=== PATIENT | female | born 1950 | race Caucasian/White ===

== ENCOUNTER 2017-07-25 10:25 | Inpatient (IN) | payer OTHER ==
[~2017-07-25] VITALS: Ht 149.9 cm; Wt 47.6 kg
[2017-07-25 10:28] VITALS: BP 180/80
[2017-07-25] MEDS ORDERED: [UNRECOGNIZED DRUG - CODE] PO (10:41)
[2017-07-25] MEDS ORDERED: ORE25 PO (10:41)
[2017-07-25] MEDS ORDERED: ATEN1TAB PO (10:41)
[2017-07-25] MEDS ORDERED: AMLO5TAB PO (10:41)
[2017-07-25] MEDS ORDERED: VAS10 PO (10:41)
[2017-07-25] MEDS ORDERED: LINA1TAB PO (10:41)
[2017-07-25] MEDS ORDERED: GLIP5TAB4 PO (10:41)
[2017-07-25] MEDS ORDERED: METF850T PO (10:41)
[2017-07-25] MEDS ORDERED: AMLO2.5T PO (10:41)
[2017-07-25] MEDS ORDERED: PANT40EC PO (10:41)
--- NOTE | 2017-07-25 10:50 | NUR ---
PATIENT JAIR BRADY PRESENTS TO ED WITH BURNING CHEST PAIN SINCE YESTERDAY HX CARDIOMEGALY, HTN, DM, HIGH CHOLESTEROL, ANXIETY. DENIES N/V/D; SKIN IS PINK/WARM/DRY; AAOX4 WITH EVEN AND STEADY GAIT; LUNGS CLEAR BL; HR EVEN AND REGULAR; PT DENIES ANY FEVER, SOB, OR COUGH AT THIS TIME; PATIENT STATES PAIN OF 4/10 AT THIS TIME; VSS; PATIENT POSITIONED FOR COMFORT; HOB ELEVATED; BEDRAILS UP X2; BED DOWN. ER MD MADE AWARE OF PT STATUS.
[2017-07-25] MEDS ORDERED: NACL 0.9% 1,000 ML IV ONE (11:00)
[2017-07-25] MEDS ORDERED: NITROGLYCERIN 2% 1 GM PKT TP ONE (11:00)
[2017-07-25] MEDS ORDERED: ASPIRIN 81 MG TAB.CHEW PO ONE (11:00)
[2017-07-25] MEDS ORDERED: PANTOPRAZOLE 40 MG INJ VIAL IVP ONE (11:00)
[2017-07-25 11:45] LABS: BASOPHILS # (AUTO) 0.1 K/uL (0.00-0.22); BASOPHILS % (AUTO) 1.8 % (0.0-2.0); EOSINOPHILS % (AUTO) 0.6 % (0.0-4.0); HEMATOCRIT 37.5 % (36-48); HEMOGLOBIN 12.8 g/dL (12.0-16.0); LYMPHOCYTES # (AUTO) 0.8 K/uL (2.5-16.5); LYMPHOCYTES % (AUTO) 10.6 % (20.5-51.1); MEAN CORPUSCULAR HEMOGLOBIN 33 pg (27-31); MEAN CORPUSCULAR HGB CONC 34 g/dL (33-37); MEAN CORPUSCULAR VOLUME 97 fL (80-94); MONOCYTES # (AUTO) 0.7 K/uL (0.8-1.0); NEUTROPHILS # (AUTO) 6.2 K/uL (1.8-7.7); PLATELET COUNT (AUTO) 242 K/uL (140-450); RED BLOOD CELL COUNT(AUTO) 3.87 MIL/uL (4.20-5.40); RED CELL DISTRIBUTION WIDTH 12.4 % (11.6-13.7); WHITE BLOOD COUNT (AUTO) 7.8 K/uL (4.8-10.8)
--- NOTE | 2017-07-25 11:52 | NUR ---
AAO PT AMBULATES TO THE RESTROOM WITH DAUGHTER'S ASSISTANCE
[2017-07-25 11:55] LABS: PROTHROMBIN TIME 9.8 secs (10.8-13.4)
[2017-07-25 11:57] LABS: ALBUMIN 3.8 g/dL (3.4-5.0); CARBON DIOXIDE 27.5 mmol/L (21-32); CREATININE 1.1 mg/dL (0.6-1.3); POTASSIUM 4.5 mmol/L (3.5-5.1); TOTAL BILIRUBIN 0.3 mg/dL (0.0-1.0)
[2017-07-25] MEDS ORDERED: DOCUSATE SODIUM 100 MG GELCAP PO PRN (13:05)
[2017-07-25] MEDS ORDERED: HYDROcodone/APAP 7.5/325 MG 1 TAB PO PRN (13:05)
[2017-07-25] MEDS ORDERED: ONDANSETRON 4 MG/2 ML VIAL IM/IVP PRN (13:05)
[2017-07-25] MEDS ORDERED: ACETAMINOPHEN 325 MG TAB PO PRN (13:05)
[2017-07-25] MEDS ORDERED: SIMETHICONE 80 MG TAB.CHEW PO PRN (13:55)
[2017-07-25 14:10] VITALS: BP 154/68
[2017-07-25] MEDS: ASPIRIN 81 MG TAB.CHEW PO SCH (14:10)
--- NOTE | 2017-07-25 14:10 | NUR ---
PATIENT ARRIVED ON [facility] UNIT VIA BED/GURNEY. IN STABLE CONDITION. ABLE TO AMBULATE FROM BED/GURNEY TO [facility] BED. NO DISTRESS NOTED. DENIES ANY PAIN AT THIS TIME. DAUGHTER WITH PATIENT AT BEDSIDE. AAOX4, CALM, COOPERATIVE, SKIN COLOR APPROPRIATE TO ETHNICITY, WARM TO TOUCH. SKIN IS INTACT, NO WOUNDS/LESIONS NOTED THROUGHOUT BODY. IV SITE ON RIGHT AC #22G, INTACT, PATENT. LUNGS CTA ON ALL LOBES. ABDOMEN SOFT, NON-TENDER. ORIENTED PATIENT TO ROOM AND CALL LIGHT FUNCTION. REVIEWED PLAN OF CARE WITH PATIENT/DAUGHTER. PATIENT/DAUGHTER VERBALIZED UNDERSTANDING. SAFETY MEASURES IN PLACE, CALL LIGHT WITHIN REACH. WILL CONTINUE TO MONITOR.
[2017-07-25 14:15] LABS: CHOL/HDL RATIO 2.5 (1-4.5); FREE T4 (FREE THYROXINE) 1.31 ng/dL (0.76-1.46); MAGNESIUM 1.8 mg/dL (1.8-2.4); THYROID STIMULATING HORMONE 1.69 uIU/mL (0.34-3.74)
--- NOTE | 2017-07-25 14:15 | NUR ---
Patient will be admitted to care of Dr Wells. Admited to tele. Will go to room 105b. Belongings list completed. Report to LEWIS Carlin.
--- NOTE | 2017-07-25 14:25 | NUR ---
Daxa fritz in EDM - 07/25/17 at 1441 by SOLO Patient will be admitted to care of Dr Mai. Admited to tele. Will go to room 112b. Belongings list completed. Report to LEWIS Stone.
[2017-07-25] MEDS ORDERED: DEXTROSE 50% 50 ML SYR IVP PRN (14:50)
[2017-07-25] MEDS ORDERED: INSULIN LISPRO SLIDING SCALE 100 UNITS/ML VIAL SUBQ PRN (14:50)
[2017-07-25] MEDS ORDERED: NACL 3% 500 ML IV ONE (15:00)
--- NOTE | 2017-07-25 15:10 | NUR ---
RADIOLOGY AT BEDSIDE FOR ARTERIAL AND VENUOUS DOPPLER ULTRASOUND. WILL CONTINUE TO MONITOR.
--- NOTE | 2017-07-25 15:53 | NUR ---
NACL 3% 500 ML AT 20 ML/HR IV STARTED PER ORDERS, HOWEVER, DR. GRACE CAME TO PATIENT'S BEDSIDE AND GAVE VERBAL ORDERS TO HOLD THE NACL 3% UNTIL LAB RESULTS COME BACK, AND TO CONTINUE PATIENT ON NACL 0.9% IVF @75 ML/HR. MD ORDERS CARRIED OUT. MRSA CULTURE OBTAINED, URINE CULTURE OBTAINED AND SENT TO LAB. SAFETY MEASURES IN PLACE, CALL LIGHT WITHIN REACH. WILL CONTINUE TO MONITOR.
[2017-07-25 16:00] VITALS: BP 148/75
[2017-07-25] MEDS: NACL 0.9% 1,000 ML IV SCH (16:43)
[2017-07-25] MEDS: metFORMIN 500 MG TAB PO SCH (17:00)
--- NOTE | 2017-07-25 17:00 | NUR ---
PATIENT'S BLOOD GLUCOSE WAS 71, ASYMPTOMATIC. PATIENT REPORTS NOT HAVING EATEN ANYTHING SINCE THIS MORNING. GAVE PATIENT APPLE JUICE AND PUDDING. WITHHELD METFORMIN PO MEDICATION AT THIS TIME DUE TO DECREASED BLOOD GLUCOSE. SAFETY MEASURES IN PLACE. WILL CONTINUE TO MONITOR.
[2017-07-25] MEDS: BLOOD GLUCOSE MONITORING 1 DEV DEV FS SCH ×2 (17:18→20:48)
--- NOTE | 2017-07-25 18:00 | NUR ---
PATIENT SITTING IN BED WITH DINNER TRAY IN FRONT. FAMILY MEMBERS AT BESIDE. NO DISTRESS NOTED. DENIES ANY PAIN. RESPIRATIONS EVEN, UNLABORED, ON ROOM AIR. IV SITE IS INTACT, PATENT, AND INFUSING NS .09% AT 75 ML/HR PER DR. GRACE ORDERS. WILL CONTINUE TO MONITOR.
[2017-07-25 18:30] LABS: APPEARANCE,URINE CLEAR (CLEAR); BILIRUBIN,URINE NEGATIVE (NEGATIVE); BLOOD, URINE TRACE-L (NEGATIVE); LEUKOCYTE ESTERASE ,URINE NEGATIVE (NEGATIVE); NITRITE, URINE NEGATIVE (NEGATIVE); UGLUCOSE NEGATIVE (NEGATIVE)
[2017-07-25 18:33] LABS: COLOR,URINE STRAW (YELLOW)
--- NOTE | 2017-07-25 19:15 | NUR ---
GAVE REPORT TO AUTOMATIC BANDSAW TENDER NURSE FOR CONTINUITY OF CARE. PATIENT IN STABLE CONDITION.
--- NOTE | 2017-07-25 19:16 | NUR ---
RECEIVED REPORT FROM DAY NURSE CAROLYN RN, PT IN STABLE CONDITION. NO S/S OF DISTRESS NOTED PT IN STABLE CONDITION. PT IS AAOX4, ON ROOM AIR. IV TO R AC 22G PATENT AND INTACT. INFUSING WELL. SKIN IS INTACT. RESPIRATIONS ARE EVEN AND UNLABORED. SKIN IS WARM AND DRY TO TOUCH. DISCUSSED PLAN OF CARE WITH PT AND DAUGHTER WITH DAY NURSE AND MYSELF, VERBALIZED UNDERSTANDING. ALL SAFETY PRECAUTIONS MET, CALL LIGHT WITHIN REACH, WILL CONTINUE TO MONITOR
[2017-07-25 19:20] LABS: RBC,URINE 0-5 (RARE) /HPF (0-5)
[2017-07-25 19:21] LABS: WBC,URINE NONE SEEN /HPF (0-5)
[2017-07-25 20:00] VITALS: BP 129/68
[2017-07-25] MEDS: ENALAPRIL 10 MG TAB PO SCH (20:44)
[2017-07-25] MEDS: amLODIPine 5 MG TAB PO SCH (20:45)
--- NOTE | 2017-07-25 20:45 | NUR ---
DUE MEDICATIONS GIVEN, NATURAL REMEDY CONSULTANT [id number] EMBER USED TO EXPLAIN MEDICATIONS, SIDE EFFECTS, AND BENEFITS. PT VERBALIZED UNDERSTAND AND TOLERATED WELL.
[2017-07-25 21:15] LABS: ANION GAP 11.8 (8-16); CARBON DIOXIDE 29.1 mmol/L (21-32); CREATININE 0.7 mg/dL (0.6-1.3); POTASSIUM 3.9 mmol/L (3.5-5.1)
[2017-07-26] VITALS: BP 120/64
[2017-07-26 04:00] VITALS: BP 123/65
[2017-07-26] MEDS: NACL 0.9% 1,000 ML IV SCH ×2 (05:42→20:13)
[2017-07-26 06:15] LABS: T4 (THYROXINE) 9.1 ug/dL (4.5-12.0)
[2017-07-26] MEDS: BLOOD GLUCOSE MONITORING 1 DEV DEV FS SCH ×4 (06:34→20:12)
[2017-07-26 07:14] LABS: BASOPHILS # (AUTO) 0.3 K/uL (0.00-0.22); BASOPHILS % (AUTO) 3.9 % (0.0-2.0); EOSINOPHILS # (AUTO) 0.1 K/uL (0-0.4); EOSINOPHILS % (AUTO) 1.5 % (0.0-4.0); HEMATOCRIT 34.5 % (36-48); HEMOGLOBIN 12.1 g/dL (12.0-16.0); LYMPHOCYTES # (AUTO) 1.3 K/uL (2.5-16.5); LYMPHOCYTES % (AUTO) 18.9 % (20.5-51.1); MEAN CORPUSCULAR HEMOGLOBIN 33 pg (27-31); MEAN CORPUSCULAR HGB CONC 35 g/dL (33-37); MEAN CORPUSCULAR VOLUME 95 fL (80-94); MONOCYTES # (AUTO) 0.6 K/uL (0.8-1.0); MONOCYTES % (AUTO) 8.3 % (1.7-9.3); NEUTROPHILS # (AUTO) 4.7 K/uL (1.8-7.7); NEUTROPHILS % (AUTO) 67.4 % (42.2-75.2); PLATELET COUNT (AUTO) 209 K/uL (140-450); RED BLOOD CELL COUNT(AUTO) 3.63 MIL/uL (4.20-5.40); RED CELL DISTRIBUTION WIDTH 12.5 % (11.6-13.7)
--- NOTE | 2017-07-26 07:19 | NUR ---
REPORT GIVEN TO SAMIR SAUCEDO FOR CONTINUITY OF CARE, PT IN STABLE CONDITION. NO S/S OF DISTRESS NOTED.
--- NOTE | 2017-07-26 07:20 | NUR ---
RECEIVED REPORT FROM PATCHER NURSE NESHA AT BEDSIDE FOR CONTINUITY OF CARE. PT IS AWAKE AND ORIENTED. DAUGHTER HENRY IS AT BEDSIDE. PT GOT UP TO USE BATHROOM. WALKED WITH STEADY GAIT. ASSISTED BACK TO BED. CALL LIGHT WITHIN REACH. BED IN LOW POSITION, WHEELS LOCKED. WILL CONTINUE TO MONITOR.
[2017-07-26 07:21] LABS: ANION GAP 12.5 (8-16); CARBON DIOXIDE 27.2 mmol/L (21-32); CREATININE 0.6 mg/dL (0.6-1.3); POTASSIUM 3.7 mmol/L (3.5-5.1)
[2017-07-26 08:00] VITALS: BP 142/65
[2017-07-26] MEDS: metFORMIN 500 MG TAB PO SCH ×2 (08:47→18:12)
[2017-07-26] MEDS: PANTOPRAZOLE 40 MG TABEC PO SCH (08:47)
--- NOTE | 2017-07-26 08:47 | NUR ---
CALLED REHABILITATION AIDE/SCHEDULER ENRIQUE [phone] WHO TRANSLATED FROM [place] AND SPOKE WITH PT'S DAUGHTER HENRY. TRANSLATED FOR SCHEDULED MEDS PURPOSE AND SIDE EFFECTS. PT AGREED HENRY WOULD TRANSLATE FOR HER. VERBALIZED UNDERSTANDING OF MEDS AND TOLERATED WELL. ASKED IF PT HAD ANY DISCOMFORT, NAUSEA OR PAIN. PT STATED NO. PT DENIES ANY PAIN AND STATED SHE FEELS FINE. NO SIGNS OF DISTRESS. WILL CONTINUE TO MONITOR.
[2017-07-26] MEDS: ATENOLOL 50 MG TAB PO SCH (08:48)
[2017-07-26] MEDS: amLODIPine 5 MG TAB PO SCH ×2 (08:48→20:13)
[2017-07-26] MEDS: ENALAPRIL 10 MG TAB PO SCH ×2 (08:48→20:12)
[2017-07-26] MEDS: ASPIRIN 81 MG TAB.CHEW PO SCH (08:48)
[2017-07-26] MEDS: ATORVASTATIN 20 MG TAB PO SCH (08:55)
[2017-07-26] MEDS ORDERED: glipiZIDE 5 MG TAB PO SCH (09:00)
--- NOTE | 2017-07-26 09:10 | NUR ---
PATIENT HAS BEEN SCREENED AND CATEGORIZED LOW NUTRITION RISK. PATIENT WILL BE SEEN WITHIN 7 DAYS OF ADMISSION. 08/01/[address] Addendum: 07/26/17 at [address] PATIENT HAS BEEN RESCREENED AND RECATEGORIZED MODERATE NUTRITION RISK. PATIENT WILL BE SEEN WITHIN 3-5 DAYS OF ADMISSION. 07/27/17/07/29/[address] Addendum: 07/27/17 at [address] DATE CORRECTION: 07/28/17 - 07/30/[address]
[2017-07-26 12:00] VITALS: BP 144/72
--- NOTE | 2017-07-26 12:00 | NUR ---
CONSENT FOR EGD AND COLONOSCOPY OBTAINED. PT'S SIGNED FORMS FOR PT. DR. ROCHA WENT OVER PROCEDURE WITH FAMILY AT BEDSIDE WHO TRANSLATED FOR PT. PT VERBALIZED UNDERSTANDING OF PROCEDURE.
[2017-07-26] MEDS: SENNA 8.6 MG TAB PO SCH ×2 (13:07→18:11)
[2017-07-26] MEDS: LACTULOSE 20 GM/30 ML UDC PO SCH ×3 (13:07→20:12)
[2017-07-26] MEDS ORDERED: BOWEL EVACUANT DRINK 4,000 ML PDS PO SCH (15:00)
--- NOTE | 2017-07-26 15:37 | NUR ---
CALLED MACHINE ERECTOR MARLON #[phone] WHO SPOKE TO PT IN [place]. TRANSLATED FOR PURPOSE OF GOLYTELY AND SIDE EFFECTS. PT VERBALIZED UNDERSTANDING. PT TOLERATING MED WELL. FAMILY MEMBERS AT BEDSIDE. PT'S GRANDDAUGHTER ASSISTING PT WITH INTAKE OF GOLYTELY. WILL CONTINUE TO MONITOR.
[2017-07-26 16:00] VITALS: BP 154/73
--- NOTE | 2017-07-26 17:01 | NUR ---
PT FINISHED GOLYTELY BOWEL PREP. TOLERATED WELL. BSC NEXT TO BED. FAMILY MEMBERS AT BEDSIDE. INSTRUCTED PT AND FAMILY OF USE OF CALL LIGHT WHEN PT NEEDS TO GET OUT OF BED. PT VERBALIZED UNDERSTANDING. NO SIGNS OF DISTRESS. WILL CONTINUE TO MONITOR.
--- NOTE | 2017-07-26 19:20 | NUR ---
ENDORSED PT TO RADAR SYSTEMS ENGINEER NURSE NIK AT BEDSIDE FOR CONTINUITY OF CARE. PT'S FAMILY AT BEDSIDE. PT IN STABLE CONDITION.
--- NOTE | 2017-07-26 19:30 | NUR ---
RECEIVED FROM AM RN IN BED SITTING UP WITH DAUGHTER AT BEDSIDE. DX. HYPONATREMIA AND WITH GERD. ALBANIAN SPEAKING. DAUGHTER SPEAKS YI. TELEMETRY MONITORING. NO SOB. WITH BOWEL PREP AT THIS TIME RT FOR EGD AND COLONOSCOPY IN A.M. BY MD ROCHA. IVF SITE TO RAC #22 INTACT AND NO INFILTRATION . CALL LIGHT WITH IN REACH. PT. INDEPENDENT . ROM X 4. CLEAR SPEECH. RE-ORIENTED TO ROOM , ROCKET TEST FIRE WORKER AND CALL LIGHT USE. SKIN INTACT. NO EDEMA.
[2017-07-26 20:00] VITALS: BP 130/68
--- NOTE | 2017-07-26 22:21 | NUR ---
PT. STILL AWAKE AND GOES TO BEDSIDE COMMODE TO EMPTY BOWELS RT BOWEL PREP FOR EGD TOMORROW. PT. A/O X 4. ROM X 4. CLEAR SPEECH. TELEMETRY MONITORING. NO SOB. CALL LIGHT WITH IN REACH. DENIES PAIN AT THIS TIME. ENCOURAGED TO CALL FOR ANY HELP SHE MAY NEED OR IF IN PAIN. REMINDED OF NPO MIDNIGHT. EXPLAINED TO FAMILY MEMBERS AND PT. HOW IMPORTANT TO FOLLOW NPO MIDNIGHT. "OK"
--- NOTE | 2017-07-27 | NUR ---
PT. SLEEPING BUT WAKES UP EVERY NOW AND THEN TO GO BM AT BEDSIDE COMMODE.
[2017-07-27 00:10] VITALS: BP 122/64
--- NOTE | 2017-07-27 04:16 | NUR ---
PT. SLEEPING WELL THIS SHIFT. DAUGHTER AT BEDSIDE WATCHING OVER HER. CALL LIGHT WITH IN REACH. NPO SINCE MIDNIGHT.
[2017-07-27 04:49] VITALS: BP 150/77
[2017-07-27] MEDS: BLOOD GLUCOSE MONITORING 1 DEV DEV FS SCH ×3 (05:58→16:29)
[2017-07-27 06:29] LABS: BASOPHILS # (AUTO) 0.3 K/uL (0.00-0.22); BASOPHILS % (AUTO) 4.4 % (0.0-2.0); EOSINOPHILS # (AUTO) 0.1 K/uL (0-0.4); EOSINOPHILS % (AUTO) 0.8 % (0.0-4.0); HEMATOCRIT 35.1 % (36-48); HEMOGLOBIN 11.9 g/dL (12.0-16.0); LYMPHOCYTES # (AUTO) 1.5 K/uL (2.5-16.5); LYMPHOCYTES % (AUTO) 20.1 % (20.5-51.1); MEAN CORPUSCULAR HEMOGLOBIN 33 pg (27-31); MEAN CORPUSCULAR HGB CONC 34 g/dL (33-37); MEAN CORPUSCULAR VOLUME 97 fL (80-94); MONOCYTES # (AUTO) 0.7 K/uL (0.8-1.0); NEUTROPHILS # (AUTO) 4.8 K/uL (1.8-7.7); NEUTROPHILS % (AUTO) 64.7 % (42.2-75.2); PLATELET COUNT (AUTO) 208 K/uL (140-450); RED BLOOD CELL COUNT(AUTO) 3.61 MIL/uL (4.20-5.40); RED CELL DISTRIBUTION WIDTH 12.4 % (11.6-13.7); WHITE BLOOD COUNT (AUTO) 7.4 K/uL (4.8-10.8)
--- NOTE | 2017-07-27 06:47 | NUR ---
PT. AWAKE AT THIS TIME AND STATED THAT HER BM IS NOW LIQUIDY AND JUST LITTLE SPECS OF SOLIDS SEEN. DAUGHTER AT BEDSIDE. PT. BEEN NPO SINCE MIDNIGHT. NO PAIN COMPLAINTS THIS SHIFT.
[2017-07-27 06:50] LABS: ANION GAP 15.3 (8-16); CARBON DIOXIDE 21.8 mmol/L (21-32); CREATININE 0.6 mg/dL (0.6-1.3); POTASSIUM 3.1 mmol/L (3.5-5.1)
--- NOTE | 2017-07-27 07:20 | NUR ---
RECEIVED REPORT FROM SQL DEVELOPER DBA NURSE NIK AT BEDSIDE FOR CONTINUITY OF CARE. PT'S DAUGHTER AT BEDSIDE. PT IS AWAKE AND ORIENTED. INTRODUCED SELF AND UPDATED BOARD. IV INFUSING AT 65ML/HR. NO SIGNS OF DISTRESS. WILL CONTINUE TO MONITOR.
[2017-07-27 08:00] VITALS: BP 142/70
[2017-07-27] MEDS: metFORMIN 500 MG TAB PO SCH (08:00)
[2017-07-27 08:46] LABS: OSMOLALITY,URINE 264 mOsmol/kg (.)
[2017-07-27] MEDS: amLODIPine 5 MG TAB PO SCH (09:00)
[2017-07-27] MEDS: SENNA 8.6 MG TAB PO SCH ×2 (09:00→12:50)
[2017-07-27] MEDS: ATORVASTATIN 20 MG TAB PO SCH (09:00)
[2017-07-27] MEDS ORDERED: ENALAPRIL 10 MG TAB PO SCH (09:00)
[2017-07-27] MEDS: ATENOLOL 50 MG TAB PO SCH (09:00)
[2017-07-27] MEDS: LACTULOSE 20 GM/30 ML UDC PO SCH ×2 (09:00→12:50)
[2017-07-27] MEDS: PANTOPRAZOLE 40 MG TABEC PO SCH (09:00)
--- NOTE | 2017-07-27 09:50 | NUR ---
CHECKED ON PT IN ROOM. SITTING UP IN BED. PT'S DAUGHTER IS AT BEDSIDE. NON-ADMINISTERED PO MEDS DUE TO PT NPO STATUS. NO SIGNS OF DISTRESS. ASKED IF PT NEEDED ANYTHING STATED NO. BED IN LOW POSITION, WHEELS LOCKED, CALL LIGHT WITHIN REACH. WILL CONTINUE TO MONITOR.
--- NOTE | 2017-07-27 11:43 | NUR ---
CHECKED BS 167. NO INSULIN COVERAGE DUE TO NPO STATUS. PT'S DAUGHTER AT BEDSIDE. NO COMPLAINTS AT THIS TIME WILL CONTINUE TO MONITOR.
[2017-07-27 12:00] VITALS: BP 158/62
--- NOTE | 2017-07-27 13:10 | NUR ---
PT PICKED UP FOR OR BY BED ACCOMPANIED BY RN. LEFT IN STABLE CONDITION.
[2017-07-27] MEDS ORDERED: diphenhydrAMINE 50 MG/ML VIAL ONE ×2 (13:33→14:54)
[2017-07-27] MEDS ORDERED: fentaNYL 0.05 MG/ML VIAL ONE ×2 (13:33→14:53)
[2017-07-27] MEDS ORDERED: MIDAZOLAM 2 MG/2 ML VIAL ONE ×2 (13:33→14:53)
--- NOTE | 2017-07-27 15:30 | NUR ---
PT RETURNED FROM OR. REPORT GIVEN BY OR NURSE. VS: BP 151/69, HR 81, RR 20, O2 SAT 100% ON RA, TEMP 98.1. NO SIGNS OF DISTRESS. FAMILY MEMBERS AT BEDSIDE. PT IN STABLE CONDITION.
[2017-07-27 16:00] VITALS: BP 151/61
[2017-07-27] MEDS: NACL 0.9% 1,000 ML IV SCH (16:01)
[2017-07-27] MEDS ORDERED: MIDAZOLAM 2 MG/2 ML VIAL IVP ONE (16:45)
[2017-07-27] MEDS ORDERED: fentaNYL 0.05 MG/ML VIAL IVP ONE (16:45)
[2017-07-27] MEDS ORDERED: VAS10 PO (16:55)
[2017-07-27] MEDS ORDERED: MAGN400S60 PO (16:55)
[2017-07-27] MEDS ORDERED: SODIUM CHLORIDE 1 GM TAB PO SCH (17:40)
[2017-07-27] MEDS ORDERED: POTASSIUM CHLORIDE 10 MEQ TABER PO SCH (17:43)
--- NOTE | 2017-07-27 18:09 | NUR ---
PT D/C'D TO GO HOME. D/C FORMS, INSTRUCTIONS, FOLLOW UP APPOINTMENT, LABS, AND RX REVIEWED WITH PT AND DAUGHTER HENRY. VERBALIZED UNDERSTANDING. D/C IV FROM RIGHT AC AND FA. IV CATHETER TIP INTACT. APPLIED DRESSING AND PRESSURE TO SITE. NO BLEEDING NOTED. REMOVED ID BAND AND TELE MONITOR. PT CHANGED IN OWN CLOTHES AND LEFT WITH ALL PERSONAL BELONGINGS. PT LEFT UNIT VIA WHEELCHAIR ACCOMPANIED BY FAMILY. PT LEFT IN STABLE CONDITION.
== END 2017-07-27 18:30 | disposition home or self-care (01) | DRG 391 ==
LOC: MED 10:25 → MTU 13:02
PROVIDERS: ADMIT Family Medicine; ATTEND Family Medicine
PROC: 0DJD8ZZ Inspection of Lower Intestinal Tract, Via Natural or Artificial Opening Endoscopic (ICD-10-PCS; principal; 2017-07-27 16:00)
PROC: 0DB68ZX Excision of Stomach, Via Natural or Artificial Opening Endoscopic, Diagnostic (ICD-10-PCS; 2017-07-27 16:00)
DX: K21.9 Gastro-esophageal reflux disease without esophagitis (principal); N17.0 Acute kidney failure with tubular necrosis; D68.59 Other primary thrombophilia; E87.1 Hypo-osmolality and hyponatremia; E11.51 Type 2 diabetes mellitus with diabetic peripheral angiopathy without gangrene; I11.9 Hypertensive heart disease without heart failure; E78.5 Hyperlipidemia, unspecified; E78.00 Pure hypercholesterolemia, unspecified; F41.9 Anxiety disorder, unspecified; E87.6 Hypokalemia; D63.8 Anemia in other chronic diseases classified elsewhere; E87.8 Other disorders of electrolyte and fluid balance, not elsewhere classified; R63.4 Abnormal weight loss; Z68.21 Body mass index [BMI] 21.0-21.9, adult
CPT/HCPCS: 36415; 71010; 80048; 80053; 81001; 82948; 83036; 83735; 83930; 83935; 84100; 84300; 84436; 84439; 84443; 84479; 84484; 85025; 85610; 85730; 86677; 87081; 93925; 93970; 96361; 96374; 99285; C9113; J1200; J1815; J2250; J3010; J3490; J7030; Q0092

== ENCOUNTER 2018-06-28 08:19 | Inpatient (IN) | payer OTHER ==
[~2018-06-28] VITALS: Ht 149.9 cm; Wt 49.9 kg
[~2018-06-28 08:19] MED LIST: AMLO2.5T PO; AMLO5TAB PO; ATEN1TAB PO; LINA1TAB PO; MAGN400S60 PO; METF850T PO; PANT40EC PO; VAS10 PO; [UNRECOGNIZED DRUG - CODE] PO
--- NOTE | 2018-06-28 08:30 | NUR ---
PT AMBULATED TO ER BED 11
[2018-06-28 08:35] VITALS: BP 184/63
--- NOTE | 2018-06-28 08:35 | NUR ---
68f bib daughter with c/o 10/10 bl below the knee leg pain, upper back pain, bl hand numbness, dizziness, generalyzed weakness to bl lower leg. 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 Patient is aox4 to person, place, time, and situation. Equal bl arm public works director. Equal bl leg push/pull. RR are even and unlabored. Patient with steady gait. CMS intact to bl arm and legs. Patient changed into gown. Awaiting er md wan. All needs met at this time. Will continue to monitor.
[2018-06-28] MEDS ORDERED: GLIP5TAB4 PO (08:52)
[2018-06-28] MEDS ORDERED: OMEP40EC14 PO (08:55)
[2018-06-28] MEDS ORDERED: CARV25TA PO (08:57)
[2018-06-28] MEDS ORDERED: ASPI81CT89 PO (08:58)
[2018-06-28] MEDS ORDERED: LISI30TA6 PO (08:59)
[2018-06-28] MEDS ORDERED: AMLO5TAB PO (09:01)
[2018-06-28] MEDS ORDERED: NACL 0.9% 1,000 ML IV ONE ×3 (09:10→10:45)
[2018-06-28 09:41] LABS: BASOPHILS # (AUTO) 0.1 K/uL (0.00-0.22); BASOPHILS % (AUTO) 0.8 % (0.0-2.0); EOSINOPHILS # (AUTO) 0.2 K/uL (0-0.4); EOSINOPHILS % (AUTO) 3.1 % (0.0-4.0); HEMOGLOBIN 10.5 g/dL (12.0-16.0); LYMPHOCYTES % (AUTO) 14.9 % (20.5-51.1); MEAN CORPUSCULAR HEMOGLOBIN 33 pg (27-31); MEAN CORPUSCULAR HGB CONC 35 g/dL (33-37); MEAN CORPUSCULAR VOLUME 95.4 fL (80-94); MONOCYTES # (AUTO) 0.5 K/uL (0.8-1.0); NEUTROPHILS # (AUTO) 4.9 K/uL (1.8-7.7); NEUTROPHILS % (AUTO) 73.2 % (42.2-75.2); PLATELET COUNT (AUTO) 224 K/uL (140-450); RED BLOOD CELL COUNT(AUTO) 3.15 MIL/uL (4.20-5.40); RED CELL DISTRIBUTION WIDTH 12.6 % (11.6-13.7); WHITE BLOOD COUNT (AUTO) 6.7 K/uL (4.8-10.8)
[2018-06-28 09:53] LABS: ANION GAP 13.6 (8-16); CARBON DIOXIDE 25.3 mmol/L (21-32); CREATININE 0.8 mg/dL (0.6-1.3); POTASSIUM 4.9 mmol/L (3.5-5.1); TOTAL BILIRUBIN 0.6 mg/dL (0.0-1.0)
--- NOTE | 2018-06-28 10:19 | NUR ---
patient with no complaints; ivf running without difficultly; all needs met at this time; awaiting lab results
[2018-06-28] MEDS ORDERED: ONDANSETRON 4 MG/2 ML VIAL IM/IVP PRN (10:40)
[2018-06-28] MEDS ORDERED: DOCUSATE SODIUM 100 MG GELCAP PO PRN (10:40)
[2018-06-28] MEDS ORDERED: ACETAMINOPHEN 325 MG TAB PO PRN (10:40)
[2018-06-28] MEDS ORDERED: HYDROcodone/APAP 5/325 MG 1 TAB TAB PO PRN (10:40)
[2018-06-28] MEDS ORDERED: LORazepam 2 MG/ML VIAL IM/IVP PRN (10:40)
[2018-06-28 10:47] LABS: APPEARANCE,URINE CLEAR (CLEAR); BILIRUBIN,URINE NEGATIVE (NEGATIVE); BLOOD, URINE TRACE-L (NEGATIVE); COLOR,URINE YELLOW (YELLOW); LEUKOCYTE ESTERASE ,URINE TRACE (NEGATIVE); NITRITE, URINE NEGATIVE (NEGATIVE); PH,URINE 6.5 (5.0-9.0); UGLUCOSE 1+ (NEGATIVE)
[2018-06-28 11:00] LABS: RBC,URINE 0-5 (RARE) /HPF (0-5); WBC,URINE 0-5 (RARE) /HPF (0-5)
[2018-06-28 11:26] LABS: BARBITURATE, URINE NEG. ng/ml (NEG <=200); BENZODIAZEPINE, URINE NEG. ng/mL (NEG <=200); CANNABINOID, URINE NEG. ng/mL (NEG <=50); COCAINE, URINE NEG. ng/mL (NEG <=300); OPIATE, URINE NEG. ng/mL (NEG <=2000); PHENCYCLIDINE SCREEN,URINE NEG. ng/mL (NEG <=25)
[2018-06-28 11:34] LABS: CHOL/HDL RATIO 2.5 (1-4.5); MAGNESIUM 1.6 mg/dL (1.8-2.4); PHOSPHORUS 3.3 mg/dL (2.5-4.9); THYROID STIMULATING HORMONE 3.06 uIU/mL (0.34-3.74)
[2018-06-28 11:35] LABS: PROTHROMBIN TIME 9.6 secs (10.8-13.4)
[2018-06-28] MEDS ORDERED: HYDR-133 PO (11:43)
--- NOTE | 2018-06-28 11:45 | NUR ---
Patient will be admitted to care of [facility]. Admited to Tele. Will go to room 122B. Belongings list completed. Bedside Report to Alicia Wood.
[2018-06-28] MEDS ORDERED: OSC500 PO (11:46)
[2018-06-28] MEDS ORDERED: [UNRECOGNIZED DRUG - CODE] PO (11:46)
[2018-06-28] MEDS ORDERED: DICL-388 PO (11:46)
[2018-06-28] MEDS ORDERED: DEXTROSE 50% 50 ML SYR IVP PRN (11:55)
--- NOTE | 2018-06-28 12:00 | NUR ---
RECEIVED REPORT FROM ER NURSE FOR CONTINUITY OF CARE. PT IN STABLE CONDITION. PT IS AT BEDSIDE PREPARING PT FOR WALK AROUND UNIT. IV INTACT AND PATENT. SAFETY MEASURES IN PLACE. CALL LIGHT AT BEDSIDE. WILL CONTINUE TO MONITOR.
[2018-06-28] MEDS ORDERED: MAG SULF 2000 MG/WATER PREMIX 100 ML IV ONE (12:15)
[2018-06-28 13:00] LABS: ANION GAP 13.7 (8-16); CARBON DIOXIDE 24.8 mmol/L (21-32); CREATININE 0.7 mg/dL (0.6-1.3); POTASSIUM 4.5 mmol/L (3.5-5.1)
[2018-06-28] MEDS ORDERED: MAGNESIUM SULFATE 4GM in STERILE WATER 100 ML PREMIX IV SCH (13:00)
[2018-06-28] MEDS ORDERED: metFORMIN 850 MG TAB PO SCH (13:00)
[2018-06-28] MEDS ORDERED: amLODIPine 5 MG TAB PO SCH ×2 (13:00→21:00)
[2018-06-28] MEDS ORDERED: LISINOPRIL 20 MG TAB PO SCH ×2 (13:00→21:00)
[2018-06-28] MEDS ORDERED: glipiZIDE 5 MG TAB PO SCH (13:00)
--- NOTE | 2018-06-28 13:30 | NUR ---
PT LYING IN BED TALKING TO FAMILY IN STABLE CONDITION. WILL CONTINUE TO MONITOR.
[2018-06-28] MEDS ORDERED: MULTIVITAMIN 1 TAB PO SCH (14:22)
[2018-06-28] MEDS: NACL 0.9% 1,000 ML IV SCH (14:25)
[2018-06-28] MEDS ORDERED: ATOR20TA PO (14:32)
--- NOTE | 2018-06-28 16:00 | NUR ---
PT IN STABLE CONDITION. RESPIRATIONS EVEN AND UNLABORED. WILL CONTINUE TO MONITOR.
--- NOTE | 2018-06-28 17:00 | NUR ---
PT IN STABLE CONDITION WILL CONTINUE TO MONITOR.
[2018-06-28] MEDS: BLOOD GLUCOSE MONITORING 1 DEV DEV FS SCH ×2 (17:28→20:56)
[2018-06-28] MEDS: glipiZIDE 5 MG TAB PO SCH (17:29)
[2018-06-28] MEDS: metFORMIN 850 MG TAB PO SCH (17:29)
--- NOTE | 2018-06-28 18:30 | NUR ---
GAVE PT BP MEDICATION EARLY PER DR. OVALLES FOR HTN COVERAGE. PT IN STABLE CONDITION. WILL CONTINUE TO MONITOR.
[2018-06-28] MEDS: CARVEDILOL 12.5 MG TAB PO SCH (18:32)
--- NOTE | 2018-06-28 19:25 | NUR ---
GAVE REPORT TO NIGHT NURSE FOR CONTINUITY OF CARE. PT IN STABLE CONDITION.
--- NOTE | 2018-06-28 19:30 | NUR ---
RECEIVED REPORT FROM DAYSHIFT NURSE AT BEDSIDE FOR CONTINUITY OF CARE. PT AAOX4 KITTITIAN SPEAKING. IV NOTED LAC 20G NS 50 ML/HR. NO SOB NO S/S OF DISTRESS ON RA. BED LOWERED CALL LIGHT WITHIN REACH WILL CONTINUE TO MONITOR.
[2018-06-28 19:42] VITALS: BP 145/44
[2018-06-28 20:00] VITALS: BP 103/44
[2018-06-28] MEDS: amLODIPine 5 MG TAB PO SCH (20:57)
[2018-06-28] MEDS ORDERED: CARVEDILOL 12.5 MG TAB PO ONE (21:00)
[2018-06-29] VITALS: BP 102/42
[2018-06-29 04:00] VITALS: BP 151/53
--- NOTE | 2018-06-29 06:04 | NUR ---
PATIENT HAS BEEN SCREENED AND CATEGORIZED LOW NUTRITION RISK. PATIENT WILL BE SEEN WITHIN 7 DAYS OF ADMISSION. 07/05/18 STEVE TAYLOR MS, RDN
[2018-06-29 06:10] LABS: FERRITIN 119 ng/mL (15-150); FOLIC ACID > 20.00 ng/mL (>3.0); TRANSFERRIN 265 mg/dL (200-370)
[2018-06-29] MEDS: glipiZIDE 5 MG TAB PO SCH (06:28)
[2018-06-29] MEDS: BLOOD GLUCOSE MONITORING 1 DEV DEV FS SCH ×4 (06:29→20:37)
[2018-06-29] MEDS ORDERED: PANTOPRAZOLE 40 MG TABEC PO SCH (06:30)
[2018-06-29] MEDS: INSULIN LISPRO SLIDING SCALE 100 UNITS/ML VIAL SUBQ PRN (06:31)
--- NOTE | 2018-06-29 07:05 | NUR ---
ENDORSED REPORT TO DAYSHIFT NURSE AT BEDSIDE FOR CONTINUITY OF CARE.
--- NOTE | 2018-06-29 07:06 | NUR ---
RECEIVED REPORT FROM NIGHT NURSE FOR CONTINUITY OF CARE. PT IN STABLE CONDITION. RESPIRATIONS EVEN AND UNLABORED. IV INTACT, PATENT. SAFETY MEASURES IN PLACE. CALL LIGHT AT BEDSIDE. WILL CONTINUE TO MONITOR.
[2018-06-29 07:56] LABS: BASOPHILS % (AUTO) 0.5 % (0.0-2.0); EOSINOPHILS # (AUTO) 0.2 K/uL (0-0.4); EOSINOPHILS % (AUTO) 3.9 % (0.0-4.0); HEMATOCRIT 26.3 % (36-48); HEMOGLOBIN 9.1 g/dL (12.0-16.0); LYMPHOCYTES # (AUTO) 1.1 K/uL (2.5-16.5); LYMPHOCYTES % (AUTO) 18.9 % (20.5-51.1); MEAN CORPUSCULAR HEMOGLOBIN 33 pg (27-31); MEAN CORPUSCULAR HGB CONC 34 g/dL (33-37); MEAN CORPUSCULAR VOLUME 96.7 fL (80-94); MONOCYTES # (AUTO) 0.6 K/uL (0.8-1.0); MONOCYTES % (AUTO) 10.2 % (1.7-9.3); NEUTROPHILS # (AUTO) 3.9 K/uL (1.8-7.7); NEUTROPHILS % (AUTO) 66.5 % (42.2-75.2); PLATELET COUNT (AUTO) 206 K/uL (140-450); RED BLOOD CELL COUNT(AUTO) 2.72 MIL/uL (4.20-5.40); RED CELL DISTRIBUTION WIDTH 12.6 % (11.6-13.7); WHITE BLOOD COUNT (AUTO) 5.9 K/uL (4.8-10.8)
[2018-06-29 08:00] VITALS: BP 154/49
[2018-06-29] MEDS: CELECOXIB 100 MG CAP PO SCH (08:18)
[2018-06-29] MEDS: metFORMIN 850 MG TAB PO SCH ×2 (08:19→16:50)
[2018-06-29] MEDS: ASPIRIN 81 MG TAB.CHEW PO SCH (08:19)
[2018-06-29] MEDS: MULTIVITAMIN 1 TAB PO SCH (08:19)
[2018-06-29] MEDS: CARVEDILOL 12.5 MG TAB PO SCH ×2 (08:19→20:37)
[2018-06-29] MEDS: CALCIUM CARBONATE 500 MG TAB PO SCH (08:20)
[2018-06-29] MEDS: HYDROCHLOROTHIAZIDE PO SCH (08:22)
[2018-06-29] MEDS: TRIAMTERENE PO SCH (08:22)
--- NOTE | 2018-06-29 08:27 | NUR ---
GIVEN ORDERED DUE MEDICATIONS. PT TOLERATED WELL. WILL CONTINUE TO MONITOR.
[2018-06-29 08:36] LABS: ANION GAP 10.7 (8-16); CARBON DIOXIDE 26.1 mmol/L (21-32); CREATININE 0.7 mg/dL (0.6-1.3); POTASSIUM 4.8 mmol/L (3.5-5.1)
[2018-06-29] MEDS ORDERED: metFORMIN 850 MG TAB PO SCH (09:00)
[2018-06-29] MEDS ORDERED: TRIAMTERENE/HCTZ 37.5/25 MG 1 TAB PO SCH (09:00)
[2018-06-29] MEDS ORDERED: amLODIPine 5 MG TAB PO SCH (09:00)
[2018-06-29] MEDS ORDERED: GLUCOSAMINE SULFATE DIPOT CHLR 1000 MG PO SCH (09:00)
[2018-06-29] MEDS ORDERED: glipiZIDE 5 MG TAB PO SCH (09:00)
[2018-06-29] MEDS ORDERED: NON-FORMULARY ITEM (Omeprazole 40 MG) PO SCH (09:00)
[2018-06-29] MEDS: NACL 0.9% 1,000 ML IV SCH ×2 (10:25→15:15)
--- NOTE | 2018-06-29 11:30 | NUR ---
PT SITTING IN BED RESPIRATIONS EVEN AND UNLABORED. WILL CONTINUE TO MONITOR.
[2018-06-29 12:00] VITALS: BP 156/50
[2018-06-29] MEDS: amLODIPine 5 MG TAB PO SCH ×2 (13:29→20:36)
--- NOTE | 2018-06-29 14:30 | NUR ---
ASSISTED WITH STANDBY HELP PT TO BATHROOM AND BRUSH TEETH. PT TOLERATED WELL.
[2018-06-29 16:00] VITALS: BP 162/52
[2018-06-29] MEDS: BACLOFEN 10 MG TAB PO SCH (16:50)
--- NOTE | 2018-06-29 17:00 | NUR ---
GAVE DUE ORDERED MEDICATIONS. WILL CONTINUE TO MONITOR.
--- NOTE | 2018-06-29 19:25 | NUR ---
GAVE REPORT TO NIGHT NURSE FOR CONTINUITY OF CARE. PT IN STABLE CONDITION.
--- NOTE | 2018-06-29 19:26 | NUR ---
RECEIVED REPORT FROM DAY SHIFT NURSE ASHELY-RN AT BEDSIDE. PT RESTING IN BED WITH FAMILY AT BEDSIDE, AOX4-ST HELENIAN SPEAKING, ON ROOM AIR WITH IV SITE ON LEFT AC #20G RUNNING NS @50ML/HR. AMBULATORY WITH ASSISTANCE. DISCUSSED PLAN OF CARE AND PT VERBALIZED UNDERSTANDING. NO S/S OF RESPIRATORY DISTRESS OR DISCOMFORT NOTED AT THIS TIME. BED IN LOWEST POSITION, BED BREAKS ON, BOTH SIDE RAILS UP AND FALL PRECAUTIONS IN PLACE. BEDSIDE TABLE AND CALL LIGHT ARE WITHIN REACH. WILL CONTINUE TO MONITOR.
[2018-06-29 20:00] VITALS: BP 167/59
--- NOTE | 2018-06-29 20:00 | NUR ---
VITAL SIGNS TAKEN AND TOLERATED WELL. INCREASED BP NOTED. BLOOD GLUCOSE 98-NO INSULIN COVERAGE NEEDED. PT TOLERATED WELL. NO S/S OF RESPIRATORY DISTRESS OR DISCOMFORT NOTED AT THIS TIME. WILL CONTINUE TO MONITOR.
[2018-06-29] MEDS: LISINOPRIL 20 MG TAB PO SCH (20:36)
--- NOTE | 2018-06-29 20:37 | NUR ---
SCHEDULED MEDICATIONS GIVEN AND TOLERATED WELL. NO S/S OF RESPIRATORY DISTRESS OR DISCOMFORT NOTED AT THIS TIME. WILL CONTINUE TO MONITOR.
--- NOTE | 2018-06-29 22:30 | NUR ---
PT SLEEPING IN BED. NO S/S OF RESPIRATORY DISTRESS OR DISCOMFORT NOTED AT THIS TIME. WILL CONTINUE TO MONITOR.
[2018-06-30] VITALS: BP 102/51
--- NOTE | 2018-06-30 | NUR ---
VITAL SIGNS TAKEN AND TOLERATED WELL. NO S/S OF RESPIRATORY DISTRESS OR DISCOMFORT NOTED AT THIS TIME. WILL CONTINUE TO MONITOR.
--- NOTE | 2018-06-30 02:00 | NUR ---
PT CONTINUES TO SLEEP IN BED. NO S/S OF RESPIRATORY DISTRESS OR DISCOMFORT NOTED AT THIS TIME. WILL CONTINUE TO MONITOR.
[2018-06-30 04:00] VITALS: BP 146/53
--- NOTE | 2018-06-30 04:00 | NUR ---
VITAL SIGNS TAKEN AND TOLERATED WELL. NO S/S OF RESPIRATORY DISTRESS OR DISCOMFORT NOTED AT THIS TIME. WILL CONTINUE TO MONITOR.
--- NOTE | 2018-06-30 06:00 | NUR ---
PT RESTING IN BED. BLOOD GLUCOSE 152- WILL ADMINISTER INSULIN COVERAGE. NO S/S OF RESPIRATORY DISTRESS OR DISCOMFORT NOTED AT THIS TIME. WILL CONTINUE TO MONITOR.
[2018-06-30] MEDS: INSULIN LISPRO SLIDING SCALE 100 UNITS/ML VIAL SUBQ PRN ×2 (06:49→16:32)
--- NOTE | 2018-06-30 06:49 | NUR ---
INSULIN COVERAGE GIVEN. PT TOLERATED WELL. NO S/S OF RESPIRATORY DISTRESS OR DISCOMFORT NOTED AT THIS TIME. WILL CONTINUE TO MONITOR.
[2018-06-30] MEDS: BLOOD GLUCOSE MONITORING 1 DEV DEV FS SCH ×4 (06:51→20:29)
--- NOTE | 2018-06-30 07:14 | NUR ---
ENDORSED PT CARE TO DAY SHIFT NURSE CEDRICK FOR CONTINUITY OF CARE.
--- NOTE | 2018-06-30 07:15 | NUR ---
RECEIVED REPORT FROM NIGHT NURSE. PT IN STABLE CONDITION. RESPIRATIONS EVEN AND UNLABORED. IV INTACT AND PATENT. SAFETY MEASURES IN PLACE. CALL LIGHT BY BEDSIDE. WILL CONTINUE TO MONITOR.
[2018-06-30 08:00] VITALS: BP 154/55
[2018-06-30 08:15] LABS: BASOPHILS # (AUTO) 0.1 K/uL (0.00-0.22); BASOPHILS % (AUTO) 0.9 % (0.0-2.0); EOSINOPHILS # (AUTO) 0.2 K/uL (0-0.4); EOSINOPHILS % (AUTO) 2.5 % (0.0-4.0); HEMATOCRIT 26.7 % (36-48); HEMOGLOBIN 9.2 g/dL (12.0-16.0); LYMPHOCYTES # (AUTO) 1.3 K/uL (2.5-16.5); LYMPHOCYTES % (AUTO) 21.2 % (20.5-51.1); MEAN CORPUSCULAR HEMOGLOBIN 34 pg (27-31); MEAN CORPUSCULAR HGB CONC 34 g/dL (33-37); MEAN CORPUSCULAR VOLUME 97.5 fL (80-94); MONOCYTES # (AUTO) 0.5 K/uL (0.8-1.0); MONOCYTES % (AUTO) 7.3 % (1.7-9.3); NEUTROPHILS # (AUTO) 4.3 K/uL (1.8-7.7); NEUTROPHILS % (AUTO) 68.1 % (42.2-75.2); PLATELET COUNT (AUTO) 210 K/uL (140-450); RED BLOOD CELL COUNT(AUTO) 2.73 MIL/uL (4.20-5.40); RED CELL DISTRIBUTION WIDTH 12.9 % (11.6-13.7); WHITE BLOOD COUNT (AUTO) 6.3 K/uL (4.8-10.8)
[2018-06-30] MEDS: CARVEDILOL 12.5 MG TAB PO SCH ×2 (08:27→20:41)
[2018-06-30] MEDS: NAPROXEN 500 MG TAB PO SCH ×2 (08:27→20:41)
[2018-06-30] MEDS: ASPIRIN 81 MG TAB.CHEW PO SCH (08:27)
[2018-06-30] MEDS: CALCIUM CARBONATE 500 MG TAB PO SCH (08:27)
[2018-06-30] MEDS: CELECOXIB 100 MG CAP PO SCH (08:28)
[2018-06-30] MEDS: metFORMIN 850 MG TAB PO SCH ×2 (08:28→17:59)
[2018-06-30] MEDS: MULTIVITAMIN 1 TAB PO SCH (08:28)
[2018-06-30] MEDS: BACLOFEN 10 MG TAB PO SCH ×3 (08:28→18:00)
[2018-06-30] MEDS: HYDROCHLOROTHIAZIDE PO SCH (08:30)
[2018-06-30] MEDS: TRIAMTERENE PO SCH (08:30)
[2018-06-30 08:47] LABS: ANION GAP 12.6 (8-16); CARBON DIOXIDE 24.9 mmol/L (21-32); CREATININE 0.7 mg/dL (0.6-1.3); POTASSIUM 4.5 mmol/L (3.5-5.1)
--- NOTE | 2018-06-30 09:06 | NUR ---
GAVE ORDERED DUE MEDICATIONS, PT TOLERATED WELL. BED IN LOW POSITION. WILL CONTINUE TO MONITOR.
[2018-06-30 09:19] LABS: MAGNESIUM 1.6 mg/dL (1.8-2.4); PHOSPHORUS 3.1 mg/dL (2.5-4.9)
--- NOTE | 2018-06-30 11:41 | NUR ---
CALLED INSIDE SALES CONSULTANT ABOUT K-PAD ORDER. NONE AVAILABLE AT THIS TIME. WILL HAVE ONE CLEANED FOR AVAILABILITY.
[2018-06-30 12:00] VITALS: BP 146/73
--- NOTE | 2018-06-30 12:30 | NUR ---
PT REFUSED K-PAD. PT STATED SHE DOESN'T WANT IT. WILL CONTINUE TO MONITOR.
[2018-06-30] MEDS: amLODIPine 5 MG TAB PO SCH ×2 (12:53→20:41)
[2018-06-30] MEDS ORDERED: MAG SULF 2000 MG/WATER PREMIX 50 ML IV SCH (14:30)
[2018-06-30] MEDS ORDERED: SODIUM CHLORIDE 1 GM TAB PO SCH (14:30)
--- NOTE | 2018-06-30 15:00 | NUR ---
GAVE ORDERED DUE MEDICATIONS, PT TOLERATED WELL. PT SITTING IN BED IN STABLE CONDITION. RESPIRATIONS EVEN AND UNLABORED. BED IN LOW POSITION. WILL CONTINUE TO MONITOR.
[2018-06-30 16:00] VITALS: BP 152/47
--- NOTE | 2018-06-30 19:15 | NUR ---
RECEIVED REPORT FROM DAY SHIFT NURSE ASHELY-RN AT BEDSIDE. PT RESTING IN BED WITH FAMILY AT BEDSIDE, AOX4-COMORAN SPEAKING, ON ROOM AIR WITH IV SITE ON LEFT AC #20G RUNNING NS @50ML/HR. AMBULATORY WITH ASSISTANCE. DISCUSSED PLAN OF CARE AND PT VERBALIZED UNDERSTANDING. NO S/S OF RESPIRATORY DISTRESS OR DISCOMFORT NOTED AT THIS TIME. BED IN LOWEST POSITION, BED BREAKS ON, BOTH SIDE RAILS UP AND FALL PRECAUTIONS IN PLACE. BEDSIDE TABLE AND CALL LIGHT ARE WITHIN REACH. WILL CONTINUE TO MONITOR.
[2018-06-30 20:00] VITALS: BP 128/41
--- NOTE | 2018-06-30 20:00 | NUR ---
VITAL SIGNS TAKEN AND TOLERATED WELL. DIASTOLIC BP NOTED TO BE DECREASED. BLOOD GLUCOSE 146- NO INSULIN COVERAGE NEEDED. NO S/S OF RESPIRATORY DISTRESS OR DISCOMFORT NOTED AT THIS TIME. WILL CONTINUE TO MONITOR.
[2018-06-30] MEDS: NACL 0.9% 1,000 ML IV SCH (20:30)
[2018-06-30] MEDS: LISINOPRIL 20 MG TAB PO SCH (20:42)
--- NOTE | 2018-06-30 21:00 | NUR ---
SCHEDULED BP MEDICATIONS NOT GIVEN DUE TO DECREASE DIASTOLIC BP. NAPROSYN NOT GIVEN DUE TO PT REFUSING MEDICATION STATING, "I DO NOT HAVE ANY PAIN." NO S/S OF RESPIRATORY DISTRESS OR DISCOMFORT NOTED AT THIS TIME. WILL CONTINUE TO MONITOR.
--- NOTE | 2018-06-30 22:00 | NUR ---
PT SLEEPING AT THIS TIME. NO S/S OF RESPIRATORY DISTRESS OR DISCOMFORT NOTED AT THIS TIME. WILL CONTINUE TO MONITOR.
[2018-07-01] VITALS (7 sets, daily range): BP systolic 117–168; BP diastolic 42–53
--- NOTE | 2018-07-01 | NUR ---
VITAL SIGNS TAKEN AND TOLERATED WELL. NO S/S OF RESPIRATORY DISTRESS OR DISCOMFORT NOTED AT THIS TIME. WILL CONTINUE TO MONITOR.
--- NOTE | 2018-07-01 02:00 | NUR ---
PT CONTINUES TO SLEEP IN BED. NO S/S OF RESPIRATORY DISTRESS OR DISCOMFORT NOTED AT THIS TIME. WILL CONTINUE TO MONITOR.
--- NOTE | 2018-07-01 04:00 | NUR ---
VITAL SIGNS TAKEN AND TOLERATED WELL. NO S/S OF RESPIRATORY DISTRESS OR DISCOMFORT NOTED AT THIS TIME. WILL CONTINUE TO MONITOR.
--- NOTE | 2018-07-01 06:00 | NUR ---
PT RESTING IN BED. BLOOD GLUCOSE 175- WILL ADMINISTER INSULIN COVERAGE. NO S/S OF RESPIRATORY DISTRESS OR DISCOMFORT NOTED AT THIS TIME. WILL CONTINUE TO MONITOR.
[2018-07-01] MEDS: BLOOD GLUCOSE MONITORING 1 DEV DEV FS SCH ×2 (06:42→11:30)
[2018-07-01] MEDS: INSULIN LISPRO SLIDING SCALE 100 UNITS/ML VIAL SUBQ PRN (06:42)
--- NOTE | 2018-07-01 06:42 | NUR ---
INSULIN COVERAGE GIVEN. PT TOLERATED WELL. NO S/S OF RESPIRATORY DISTRESS OR DISCOMFORT NOTED AT THIS TIME. WILL CONTINUE TO MONITOR.
[2018-07-01 07:29] LABS: BASOPHILS % (AUTO) 0.8 % (0.0-2.0); EOSINOPHILS # (AUTO) 0.1 K/uL (0-0.4); EOSINOPHILS % (AUTO) 2.4 % (0.0-4.0); HEMATOCRIT 26.4 % (36-48); HEMOGLOBIN 9.2 g/dL (12.0-16.0); LYMPHOCYTES # (AUTO) 1.3 K/uL (2.5-16.5); LYMPHOCYTES % (AUTO) 21.6 % (20.5-51.1); MEAN CORPUSCULAR HEMOGLOBIN 34 pg (27-31); MEAN CORPUSCULAR HGB CONC 35 g/dL (33-37); MEAN CORPUSCULAR VOLUME 97.2 fL (80-94); MONOCYTES # (AUTO) 0.5 K/uL (0.8-1.0); MONOCYTES % (AUTO) 7.9 % (1.7-9.3); NEUTROPHILS # (AUTO) 3.9 K/uL (1.8-7.7); NEUTROPHILS % (AUTO) 67.3 % (42.2-75.2); PLATELET COUNT (AUTO) 210 K/uL (140-450); RED BLOOD CELL COUNT(AUTO) 2.72 MIL/uL (4.20-5.40); RED CELL DISTRIBUTION WIDTH 12.9 % (11.6-13.7); WHITE BLOOD COUNT (AUTO) 5.8 K/uL (4.8-10.8)
--- NOTE | 2018-07-01 07:29 | NUR ---
ENDORSED PT CARE TO DAY SHIFT NURSE CONCETTA-LEWIS FOR CONTINUITY OF CARE.
--- NOTE | 2018-07-01 07:30 | NUR ---
RECEIVED PT FROM PM NURSE, PT AWAKE, ALERT. RA, NO S/S OF RESPIRATORY DISTRESS NOTED. LUNG SOUND CLEAR, PT HAS IV TO LEFT AC # 20 RUNNING NS AT 50 MLS/HR, SITE INTACT AND PATENT. PT ABLE TO MOVE ALL HER EXTREMITIES , POC EXPLAINED TO PT, CALL LIGHT IN REACH, HOB ELEVATED 30 DEGREES, WILL CONTINUE TO MONITOR.
[2018-07-01 07:41] LABS: CARBON DIOXIDE 26.5 mmol/L (21-32); CREATININE 0.6 mg/dL (0.6-1.3); POTASSIUM 4.5 mmol/L (3.5-5.1)
[2018-07-01 07:45] LABS: MAGNESIUM 1.9 mg/dL (1.8-2.4); PHOSPHORUS 3.5 mg/dL (2.5-4.9)
[2018-07-01] MEDS: metFORMIN 850 MG TAB PO SCH (08:13)
[2018-07-01] MEDS: CALCIUM CARBONATE 500 MG TAB PO SCH (08:14)
[2018-07-01] MEDS: MULTIVITAMIN 1 TAB PO SCH (08:14)
[2018-07-01] MEDS: CELECOXIB 100 MG CAP PO SCH (08:15)
[2018-07-01] MEDS: BACLOFEN 10 MG TAB PO SCH ×2 (08:15→12:37)
[2018-07-01] MEDS: ASPIRIN 81 MG TAB.CHEW PO SCH (08:15)
[2018-07-01] MEDS: NAPROXEN 500 MG TAB PO SCH (08:15)
[2018-07-01] MEDS: CARVEDILOL 12.5 MG TAB PO SCH (08:22)
[2018-07-01] MEDS ORDERED: HYDR-5123 PO (08:33)
[2018-07-01] MEDS ORDERED: MULT-405 PO (08:37)
[2018-07-01] MEDS ORDERED: SODIUM CHLORIDE 1 GM TAB PO SCH (09:00)
[2018-07-01] MEDS: HYDROCHLOROTHIAZIDE PO SCH (09:14)
[2018-07-01] MEDS: TRIAMTERENE PO SCH (09:14)
--- NOTE | 2018-07-01 09:20 | NUR ---
DUE MEDS GIVEN, PT TOLERATED WELL.
--- NOTE | 2018-07-01 12:00 | NUR ---
BS CHECKED, NO INSULIN COVERAGE NEEDED. LUNCH TRAY SERVED, PT'S DAUGHTER AT BEDSIDE.
[2018-07-01] MEDS: amLODIPine 5 MG TAB PO SCH (12:38)
--- NOTE | 2018-07-01 14:25 | NUR ---
Volunteer Services Coordinator Note: I informed patient and patient's daughter Cate of 's recommendation for home health services for physical therapy. Patient and Cate are in agreement with receiving home health services from [facility], phone number . I provided Cate with [facility]'s phone number. She is aware [facility] will contact her to arrange home visits. I verified patient's home address and Cate's phone numbers, [address] [facility] [address], and . I faxed inquiry to [facility]. Per Zoraida from [facility], they will send a nurse to patients home either tomorrow or 07/03/18. Patients nurse Theodora made aware home health services have been coordinated.
--- NOTE | 2018-07-01 15:45 | NUR ---
PT AWAKE, ALERT. DENIES PAIN OR DISCOMFORT. DISCHARGE PAPER GIVEN , EXPLAINED AND SIGNED BY PT. PT NOTIFIED HOME HEALTH WAS SET UP AND WILL GO PT'S HOME. PT REFUSED FLU AND PNA VACCINES. IV DC'ed. ALL PERSONAL BELONGINGS WITH PT. TOOK PT TO PARKING LOT BY WHEELCHAIR, PT'S DAUGHTER ACCOMPANIED WITH PT. PT LEFT IN STABLE CONDITION.
[2018-07-03 06:25] LABS: OSMOLALITY,URINE 259 mOsmol/kg (.)
== END 2018-07-01 15:45 | disposition home health service (06) | DRG 73 ==
LOC: MED 08:19 → MTU 11:01
PROVIDERS: ADMIT General Practice; ATTEND General Practice
DX: G90.8 Other disorders of autonomic nervous system (principal); N17.0 Acute kidney failure with tubular necrosis; E87.1 Hypo-osmolality and hyponatremia; D68.59 Other primary thrombophilia; I16.0 Hypertensive urgency; I50.9 Heart failure, unspecified; E11.65 Type 2 diabetes mellitus with hyperglycemia; E87.8 Other disorders of electrolyte and fluid balance, not elsewhere classified; E83.42 Hypomagnesemia; I11.0 Hypertensive heart disease with heart failure; E78.00 Pure hypercholesterolemia, unspecified; M54.9 Dorsalgia, unspecified; G89.29 Other chronic pain; E78.5 Hyperlipidemia, unspecified; E86.0 Dehydration; Z91.19 Patient's noncompliance with other medical treatment and regimen; D64.9 Anemia, unspecified; M13.0 Polyarthritis, unspecified
CPT/HCPCS: 36415; 70450; 72080; 80048; 80053; 80305; 81001; 82140; 82607; 82728; 82746; 82948; 83036; 83540; 83605; 83690; 83735; 83880; 83930; 83935; 84100; 84134; 84300; 84443; 84484; 84550; 85025; 85045; 85610; 85730; 87081; 93880; 93970; 96360; 96361; 97116; 97530; 99285; J1815; J3475; J7030; Q0092